=== PATIENT | male | born 1960 | race Caucasian/White ===

== ENCOUNTER 2020-08-24 02:04 | Emergency (ER) | payer MEDICARE, MEDICAID ==
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
== END 2020-08-24 03:18 | disposition home or self-care (01) ==
LOC: ERS 02:04
DX: M47.26 Other spondylosis with radiculopathy, lumbar region (principal); M89.8X9 Other specified disorders of bone, unspecified site; E11.9 Type 2 diabetes mellitus without complications; I11.0 Hypertensive heart disease with heart failure; I50.9 Heart failure, unspecified; F17.210 Nicotine dependence, cigarettes, uncomplicated; Z79.84 Long term (current) use of oral hypoglycemic drugs; Z79.899 Other long term (current) drug therapy
CPT/HCPCS: 70450; 72125; 72128; 72131